=== PATIENT | female | born 1940 | race Caucasian/White ===

== ENCOUNTER 2017-05-16 16:20 | Emergency (ER) | payer MEDICARE, BC ==
--- NOTE | 2017-05-16 16:33 | UC ---
Abdominal Pain Female HPI - HPI Summary HPI Summary: 76 year old female presents with nausea, vertigo and unsteady gait. - History of Current Complaint Stated Complaint: DIZZY NAUSEA SINCE MID DEC VOMITING Time Seen by Provider: 05/16/17 16:26 Allergies/Adverse Reactions: Allergies Allergy/AdvReac Type Severity Reaction Status Date / Time No Known Allergies Allergy Verified 05/16/17 16:44 Home Medications: Home Medications Cholecalciferol TAB* [Vitamin D TAB*] 2,000 units PO DAILY 05/16/17 [History Confirmed 05/16/17] Ferrous Sulfate TAB* 325 mg PO DAILY 05/16/17 [History Confirmed 05/16/17] Hydrochlorothiazide TAB* [Hydrodiuril TAB*] 12.5 mg PO DAILY 05/16/17 [History Confirmed 05/16/17] Lactobacillus [Probiotic] 1 cap PO DAILY 05/16/17 [History Confirmed 05/16/17] Loratadine [Claritin 10 MG CAP] 10 mg PO DAILY 05/16/17 [History Confirmed 05/16] Valsartan TAB* [Diovan TAB*] 80 mg PO DAILY 05/16/17 [History Confirmed 05/16/17 ] Review of Systems Constitutional: Negative, Fatigue Skin: Negative Eyes: Negative ENT: Negative Respiratory: Negative Cardiovascular: Negative Gastrointestinal: Negative Genitourinary: Negative Motor: Negative Neurovascular: Negative Musculoskeletal: Negative Neurological: Negative, Headache, Weakness Psychological: Negative All Other Systems Reviewed And Are Negative: Yes Physical Exam Triage Information Reviewed: Yes Eye Exam: Normal ENT Exam: Normal Dental Exam: Normal Neck exam: Normal Neck: Positive: 1 Respiratory Exam: Normal Cardiovascular Exam: Normal Abdominal Exam: Normal Musculoskeletal Exam: Normal Neurological Exam: Normal Psychological Exam: Normal Skin Exam: Normal Abd Pain Female Course/Dx - Differential Dx/Diagnosis Provider Diagnoses: vertigo. dizziness Discharge - Discharge Plan Condition: Stable Disposition: HOME Prescriptions: Pantoprazole Sodium [Protonix] 20 mg PO BID #60 tab Scopolamine 1.5 mg* PATCH* [Transderm-Scop 1.5 mg Patch*] 1 patch TRANSDERM Q72H #3 patch Patient Education Materials: Acute Nausea and Vomiting (ED) Referrals: Norma Sawant MD [Primary Care Provider] - As Soon As Possible
[2017-05-16 16:49] VITALS: BP 140/77
== END 2017-05-16 17:29 | disposition home or self-care (01) ==
LOC: UCCORT 16:20
DX: R42 Dizziness and giddiness (principal)
CPT/HCPCS: 99212; G0463

== ENCOUNTER 2019-04-20 18:39 | Emergency (ER) | payer MEDICARE, BC ==
--- OUTSIDE RECORDS SUMMARY | 2019-04-20 19:12 | XMS REPORT | Continuity of Care Document ---
:1940 External Reference #:[id number] Author Name Marcelo Schaffer M.D., [facility] Address [address] [place] [address] Care Team Providers Name Role Phone Norma Sawant MD Care Team Information Finish Painter Unavailable Norma Sawant MD Primary Care Physician Unavailable Payers Date Identification Numbers Payment Provider Subscriber Policy Number: [id number] Medicare Shiela Mena PayID: [id number] [address] [place] [address] Effective: 2011 Policy Number: [id number] [facility] Shiela Mena PayID: [id number] [address] [address] [place] [address] Expires: 2019 Policy Number: [id number] Medicare Shiela Mena PayID: [id number] [address] [place] [address] Problems Active Problems Provider Date Localized, primary osteoarthritis of Cordell Newman MD Onset: 09/02/2010 the shoulder region Arthroplasty of knee Onset: 10/22/2003 Contusion of knee Onset: 10/22/2003 Localized, primary osteoarthritis Onset: 10/22/2003 Essential hypertension Marcelo Schaffer M.D., Onset: 06/17/2017 FACC Hyperlipidemia Marcie Perry, MSN, Onset: 09/03/2013 [employer] Benign essential hypertension Marcie Perry, RENUKA, Onset: 09/03/2013 [employer] Dyspnea Marcelo Schaffer M.D., Onset: 08/13/2013 [facility] Family History Date Family Member(s) Observation Comments General Stroke Social History Type Date Description Comments Sex Unknown Lives With Alone Diet Patient follows no dietary restrictions Occupation Retired ADL's/IADL's Independent with all ADL's Tobacco Use Start: Unknown End: Former Cigarette Smoker QUIT 50 YRS AGO Unknown Smoking Status Reviewed: 04/06/19 Former Cigarette Smoker QUIT 50 YRS AGO ETOH Use Drinks Alcoholic Beverages Occasionally Allergies, Adverse Reactions, Alerts Active Allergies Reaction Severity Comments Date Nexium 07/31/2013 Prilosec 07/31/2013 Medications Active Medications SIG Qnty Indications Ordering Date Provider Hydrochlorothiazide 1 tab by mouth 90tabs I10 Marcie Perry 10/11/2018 25mg Tablets every day RENUKA Awad, [employer] Diovan 1 by mouth twice 60tabs I10 Sarbjit, 10/11/2018 80mg Tablets day Marcelo Payne M.D., [facility] Pravastatin Sodium 1 by mouth every 90tabs Sarbjit, 09/15/2018 10mg Tablets day Marcelo Payne M.D., [facility] Colace 1 by mouth daily Unknown 100mg Capsules and can take twice a day as needed Miralax 1 tablespoon Unknown 3350NF Powder with large glass of water every day Proventil HFA 1-2 puffs every Unknown 108(90Base) mcg/Act 4 hours as Aerosol needed Vitamin D3 Super Strength 1 by mouth every Unknown day 2000Unit Capsules Align 1 by mouth every Unknown 4mg Capsules day Lumigan a/d Unknown 0.01% Solution Claritin 1 by mouth every Unknown 10mg Capsules day History Medications Hydrochlorothiazide 1 by mouth 30tabs Tatiana Brand, 07/14/2018 - 25mg Tablets every day as MD Unknown needed for swelling Losartan 1 by mouth 90tabs Sarbjit, 05/18/2018 - Potassium/Hydrochlorothiaz every day Jaylan Cruz M.D., [facility] 50-12.5mg Tablets Diovan 1 by mouth Sarbjit, 02/20/2018 - 320mg Tablets every day Marcelo M., Unknown M.D., [facility] Diovan HCT 1 by mouth 90tabs I10 Sunday [place], 11/02/2017 - 160-25mg Tablets every day 10/11/2018 Diovan 1 by mouth 90tabs I10 [place], 10/07/2017 - 40mg Tablets daily Marcelo M., 10/11/2018 M.D., [facility] Bystolic 1 by mouth 90tabs Davidenko, 10/07/2017 - 5mg Tablets every day Marcelo M., Unknown M.D., [facility] Diovan 1 by mouth 30tabs Davidenko, 07/06/2017 - 40mg Tablets every day Marcelo M., 07/06/2017 M.D., [facility] Diovan 1 by mouth 90tabs Davidenko, 07/06/2017 - 40mg Tablets every day Marcelo M., Unknown M.D., [facility] Amlodipine Besylate 1 by mouth 90tabs Davidenko, 06/21/2017 - 2.5mg Tablets every day Marcelo M., 07/06/2017 M.D., [facility] Amlodipine Besylate 1 by mouth 30tabs [place]ko, 06/17/2017 - 2.5mg Tablets every evening Marcelo M., 06/17/2017 M.D., [facility] Norvasc 1 by mouth 90tabs Davidenko, 06/17/2017 - 2.5mg Tablets every day Marcelo M., 06/21/2017 M.D., [facility] Plavix 1 by mouth 30tabs 786.05 Marcie Perry 09/06/2013 - 75mg Tablets every day Jaylan Awad MSN, [employer] Clopidogrel 1 by mouth 20tabs 786.05 Davidenko, 09/03/2013 - 75mg Tablets every day Marcelo M., 09/06/2013 M.D., [facility] Lidoderm apply to 20units Cordell Newman, 09/10/2009 - 5% Patches affected areas Unknown 12 hours on, 12 hours off Mobic 1 PO bid pc 60tabs Cordell Newman, 01/30/2007 - 7.5mg Tablets Unknown Tylenol Extra Strength 2 tabs by mouth Unknown - 500mg every 4 hours Unknown Tablets as needed for back pain Diovan 1 by mouth 90tabs Tatiana Brand, - 40mg Tablets every day Unknown Bystolic 1 by mouth Unknown - 5mg Tablets every day Unknown Hydrochlorothiazide 1 by mouth Unknown - 25mg Tablets every day 11/02/2017 Iron 1 po qd 90tabs Unknown - 325(65Fe) mg Tablets Unknown Tylenol Extra Strength 2 tab po tid Unknown - 500mg Unknown Tablets Vitamin D-1000 1 po qd 60tabs Unknown - 4000Unit Tablets Unknown Lovaza 2 tab po bid 180caps Unknown - 1gm Capsules Unknown Diovan HCT 1 po qd 30tabs Unknown - 160-25mg Tablets Unknown Zantac 1 po prn Unknown - 150mg Tablets Unknown Aspir-81 1 po qd 30tabs Unknown - 81mg Tablets DR Unknown Vital Signs Date Vital Result Comment 04/06/2019 11:46am BP Systolic Sitting Left Arm 125 mmHg BP Diastolic Sitting Left Arm 68 mmHg Heart Rate 74 /min Respiratory Rate 18 /min Height 63 inches 5'3" Weight 187.00 lb BMI (Body Mass Index) 33.1 kg/m2 BSA (Body Surface Area) 1.88 m2 [place] body weight in kilograms 52 kg O2 % BldC Oximetry 97 % 10/11/2018 9:17am BP Systolic Sitting Right Arm 138 mmHg BP Diastolic Sitting Right Arm 72 mmHg BP Systolic Sitting Left Arm 132 mmHg BP Diastolic Sitting Left Arm 70 mmHg Heart Rate 68 /min Respiratory Rate 18 /min Height 63 inches 5'3" Weight 187.00 lb BMI (Body Mass Index) 33.1 kg/m2 BSA (Body Surface Area) 1.88 m2 [place]ajas body weight in kilograms 52 kg O2 % BldC Oximetry 98 % 09/14/2018 3:07pm BP Systolic Sitting Left Arm 140 mmHg BP Diastolic Sitting Left Arm 76 mmHg Heart Rate 78 /min Respiratory Rate 16 /min Height 63 inches 5'3" Weight 190.00 lb BMI (Body Mass Index) 33.7 kg/m2 BSA (Body Surface Area) 1.89 m2 Lajas body weight in kilograms 52 kg O2 % BldC Oximetry 94 % 03/09/2018 3:48pm BP Systolic Sitting Left Arm 118 mmHg BP Diastolic Sitting Left Arm 66 mmHg Heart Rate 74 /min Respiratory Rate 18 /min Height 63 inches 5'3" Weight 186.00 lb BMI (Body Mass Index) 32.9 kg/m2 BSA (Body Surface Area) 1.87 m2 [place]ajas body weight in kilograms 52 kg 10/14/2017 10:24am BP Systolic Sitting Left Arm 120 mmHg BP Diastolic Sitting Left Arm 60 mmHg Heart Rate 70 /min Respiratory Rate 18 /min Height 63 inches 5'3" Lajas body weight in kilograms 52 kg 10/07/2017 10:29am BP Systolic Sitting Left Arm 144 mmHg BP Diastolic Sitting Left Arm 78 mmHg Heart Rate 76 /min Respiratory Rate 14 /min Height 63 inches 5'3" Weight 184.00 lb BMI (Body Mass Index) 32.6 kg/m2 BSA (Body Surface Area) 1.87 m2 [place]ajas body weight in kilograms 52 kg 09/07/2017 1:57pm BP Systolic Sitting Left Arm 134 mmHg BP Diastolic Sitting Left Arm 82 mmHg Heart Rate 84 /min Respiratory Rate 16 /min Height 63 inches 5'3" Weight 186.00 lb BMI (Body Mass Index) 32.9 kg/m2 BSA (Body Surface Area) 1.87 m2 [place] body weight in kilograms 52 kg 06/17/2017 9:21am BP Systolic Sitting Right Arm 148 mmHg BP Diastolic Sitting Right Arm 84 mmHg Heart Rate 69 /min Respiratory Rate 16 /min Height 63 inches 5'3" Weight 184.00 lb BMI (Body Mass Index) 32.6 kg/m2 BSA (Body Surface Area) 1.87 m2 [place] body weight in kilograms 52 kg 09/03/2013 1:25pm BP Systolic Sitting Right Arm 134 mmHg BP Diastolic Sitting Right Arm 72 mmHg Heart Rate 74 /min Respiratory Rate 16 /min Height 63 inches 5'3" Weight 199.00 lb BMI (Body Mass Index) 35.2 kg/m2 BSA (Body Surface Area) 1.93 m2 08/21/2013 3:00pm BP Systolic Sitting Left Arm 122 mmHg BP Diastolic Sitting Left Arm 66 mmHg Heart Rate 70 /min Respiratory Rate 16 /min Height 63 inches 5'3" Weight 196.00 lb BMI (Body Mass Index) 34.7 kg/m2 BSA (Body Surface Area) 1.92 m2 08/13/2013 2:20pm BP Systolic Sitting Right Arm 132 mmHg BP Diastolic Sitting Right Arm 74 mmHg Heart Rate 72 /min Respiratory Rate 18 /min Height 63 inches 5'3" Weight 199.00 lb BMI (Body Mass Index) 35.2 kg/m2 BSA (Body Surface Area) 1.93 m2 04/11/2012 10:50am Height 62 inches 5'2" pt refused scale 09/01/2011 9:49am Height 62 inches 5'2" Weight 190.00 lb 03/11/2010 10:18am Height 62 inches 5'2" Weight 198.00 lb 03/19/2009 9:42am Height 61 inches 5'1" Weight 182.00 lb 04/10/2008 9:15am Height 61 inches 5'1" Weight 180.00 lb 01/30/2007 3:15pm Height 61 inches 5'1" Weight 200.00 lb 04/18/2006 2:48pm Height 61 inches 5'1" Weight 201.00 lb 07/11/2003 12:57pm Height 62 inches 5'2" Weight 194.00 lb Results Test Date Facility Test Result H/L Range Note Basic Metabolic Panel 09/03/2013 [facility] Glucose 98 mg/dL 76-115 [address] [place], [place] [id number] [phone] BUN 32 mg/dL High 5-23 Creatinine 0.9 mg/dL 0.5-1.4 Glom Filtration Rate, Estimate >60 mL/min >60 If >60 mL/min >60 1 BUN/Creat 35.5 ratio Sodium 139 mmol/L 136-145 Potassium 3.9 mmol/L 3.5-5.1 Chloride 106 mmol/L 98-107 Carbon Dioxide 28 mEq/L 18-29 Anion Gap 9 mEq/L 8-16 Calcium 9.3 mg/dL 8.5-10.1 Laboratory test finding 03/20/2009 N2N/CCD Import Total Protein 7.0 g/dL 6.3-8.0 Albumin 3.8 g/dL 3.5-5.0 Bilirubin,Total 0.6 mg/dL 0.2-1.2 Bilirubin,Direct 0.1 mg/dL 0.1-0.4 Bilirubin,Indirect 0.5 mg/dL 0.0-0.9 Sgot/Ast 21 U/L 16-40 SGPT/Alt 45 U/L 30-65 Alkaline Phosphatase 91 U/L 50-136 Globulin 3.2 gm/dL 1.9-4.3 Alb/Glob 1.2 BUN And Creatinine 03/20/2009 N2N/CCD Import BUN 30 mg/dL High 5-23 BUN/Creat 30.0 mg/dL Creatinine 1.0 0.5-1.4 1 Note: Persistent reduction for 3 months or more in an eGFR <60 mL/min/1.73 m2 defines CKD. Patients with eGFR values >/=60 mL/min/1.73 m2 may also have CKD if evidence of persistent proteinuria is present. The original MDRD equation for estimated GFR is not valid for patients less than 18 years of age. Additional information may be found at www.kdoqi.org. Procedures Date Code Description Status 09/14/2018 50650 EKG-Tracing And Report Completed 10/14/2017 85606 Blood Pressure Monitoring Completed 09/07/2017 69631 EKG-Tracing And Report Completed 06/17/2017 22567 Echocardiogram Complete Completed 06/17/2017 36875 EKG-Tracing And Report Completed 08/28/2013 80718 Stress Test Interpre And Report Only Completed 08/28/2013 19840 Stress Test Physician Super Only Completed 08/28/2013 48016 Stress Test Physician Super Only Completed 08/28/2013 95983 Myocardial Imaging Tomographic Multiple Study AT Rest Or Completed Stress 08/16/2013 65505 Echocardiogram Complete Completed 08/13/2013 82314 EKG-Tracing And Report Completed 04/11/201254983 Asp./Injection major joint Completed 09/01/2011 Asp./Injection major joint Completed 09/02/201012906 Asp./Injection major joint Completed 08/12/2010 53663 Stress Test Interpre And Report Only Completed 08/12/2010 24966 Stress Test Physician Super Only Completed 08/12/2010 65407 Myocardial Imaging Tomographic Multiple Study AT Rest Or Completed Stress 09/10/2009 Asp./Injection major joint Completed 09/18/2008 Asp./Injection major joint Completed 11/10/2005 Asp./Injection major joint Completed 05/17/2005 Asp./Injection major joint Completed Encounters Type Date Location Provider Dx Diagnosis Office Visit 04/06/2019 Cardiology Office Marcelo Schaffer I10 Essential ( primary) 11:40a Cleve Payne, [facility] hypertension E78.5 Hyperlipidemia, unspecified R06.02 Shortness of breath Office Visit 10/11/2018 9:00a Cardiology Office Marcie Perry I1Hang Essential RENUKA Awad, (primary) [employer] hypertension E78.5 Hyperlipidemia, unspecified Office Visit 09/14/2018 3:00p Cardiology Office Marcelo Schaffer Essential Cleve Payne, [facility] (primary) hypertension E78.5 Hyperlipidemia, unspecified Office Visit 03/09/2018 3:40p Cardiology Office Marcelo Schaffer Essential Cleve Payne, [facility] (primary) hypertension Office Visit 10/14/2017 10:00a Cardiology Office Marcelo Schaffer M.D., [facility] (primary) hypertension Office Visit 10/07/2017 10:20a Cardiology Office Marcelo Schaffer M.D., [facility] (primary) hypertension Office Visit 09/07/2017 1:30p Cardiology Office Peter Oreilly I10 Essential [place], [place] (primary) hypertension K59.00 Constipation, unspecified R94.31 Abnormal electrocardiogram [ECG] [EKG] Office Visit 06/17/2017 Cardiology Marcelo Schaffer I1Hang Essential 9:00a Office Cleve Payne, [facility] (primary) hypertension Office Visit 09/03/2013 Cardiology Marcie Perry 786.05 Shortness Of 1:20p Office RENUKA Awad, Breath [employer] 401.1 Hypertension Benign 272.4 Hyperlipidemia Other Unspec 281.9 Anemia Deficiency Unspec Office Visit 08/21/2013 2:20p Cardiology Office Marcie Perry 786.05 Shortness Of Delmi, RENUKA, Breath [employer] 401.1 Hypertension Benign 272.4 Hyperlipidemia Other Unspec Office Visit 08/13/2013 1:30p Cardiology Office Marcelo Schaffer 786.05 Yumiko M.D., [facility] Breath Plan of Treatment Future Appointment(s):08/31/2019 11:40 am - Marcelo Schaffer M.D., [facility] at Cardiology [id number]/06/2019 - Marcelo Schaffer M.D., [id number] Essential ( primary) hypertensionComments:No side effect complaints today. BP well controlled. No [id number] Hyperlipidemia, unspecifiedComments:She refuses rnevwrbR14.02 Shortness of breathComments:I advised more walking. Albuterol is okAllFollow up:Follow up visit in 6 months.
[2019-04-20 19:19] VITALS: BP 152/69
--- NOTE | 2019-04-20 19:26 | UC ---
Skin Complaint HPI - HPI Summary HPI Summary: 78-year-old female who was trying out some new orthotics in her shoes yesterday and went for a long walk and she has increased swelling and redness to her right great toe at the base. She has no history of gout. She does have significant bunions on both feet. - History of Current Complaint Chief Complaint: UCLowerExtremity Time Seen by Provider: 04/20/19 19:26 Stated Complaint: RT BIG TOE COMP Hx Obtained From: Patient Hx Last Menstrual Period: N/A ?: No Onset/Duration: Gradual Onset Skin Exposure Onset/Duration: Worse Since: - The swelling and redness was worse yesterday and last evening however the patient states it's much improved this morning when she applied diclofenac cream to the area but she wanted it rechecked today. Timing: Constant Onset Severity: Moderate Current Severity: Mild Pain Intensity: 6 Location: Other Character: Swelling - Base of the right great toe., Pain, Redness Aggravating Factor(s): Other - Patient thinks this was aggravated by her new orthotics which she states did not fit well into her shoes but she kept walking anyways. Alleviating Factor(s): OTC Creams/Salves Associated Signs & Symptoms: Positive: Negative - Allergy/Home Medications Allergies/Adverse Reactions: Allergies Allergy/AdvReac Type Severity Reaction Status Date / Time No Known Allergies Allergy Verified 04/20/19 19:19 Home Medications: Home Medications Pantoprazole Sodium [Protonix] 20 mg PO BID PRN 04/20/19 [History Confirmed ] PMH/Surg Hx/FS Hx/Imm Hx Previously Healthy: Yes Cardiovascular History: Hypertension Respiratory History: Asthma - Surgical History Surgical History: Yes Surgery Procedure, Year, and Place: hysterectomy. left knee replacement - Family History Known Family History: Positive: Non-Contributory - Social History Occupation: Retired Alcohol Use: Rare Substance Use Type: None Smoking Status (MU): Former Smoker When Did the Patient Quit Smoking/Using Tobacco: in college Review of Systems All Other Systems Reviewed And Are Negative: Yes Skin: Positive: Other - Redness and tenderness base of the right great toe where the bunion is located. Motor: Positive: Negative Neurovascular: Positive: Negative Musculoskeletal: Positive: Negative Neurological: Positive: Negative Is Patient Immunocompromised?: No Physical Exam Triage Information Reviewed: Yes Appearance: Well-Appearing, No Pain Distress, Well-Nourished Vital Signs: Initial Vital Signs Temp 97.7 F 04/20/19 19:13 Pulse 76 04/20/19 19:13 Resp 19 04/20/19 19:13 BP 152/69 04/20/19 19:13 Pulse Ox 98 04/20/19 19:13 Vital Signs Reviewed: Yes Musculoskeletal: Positive: Strength Intact, ROM Intact, Other: - Good peripheral pulses neuro sensation capillary refill. The base of the right great toe is erythematous with mild tenderness on palpation and mild swelling of the dorsum of her right great toe. Neurological Exam: Normal Psychological Exam: Normal Skin Exam: Normal Course/Dx - Course Course Of Treatment: 78-year-old female who I believe has mostly skin irritation from wearing orthotics it did not fit correctly and then going on a long walk yesterday. She states the redness and swelling has much improved today since yesterday. At this point time I don't believe this is a cellulitis that needs an antibiotic nor do I think it's gout. She is to elevate as much as possible. Apply warm moist compresses to the area or do warm soaks she may continue to apply the diclofenec cream since that seemed to improve the redness swelling and pain. She is to follow-up with the rotary planer set up operator on Tuesday if no improvement or if worsening symptoms. - Diagnoses Provider Diagnosis: Skin irritation Discharge - Sign-Out/Discharge Documenting (check all that apply): Patient Departure All imaging exams completed and their final reports reviewed: No Studies - Discharge Plan Condition: Fair Disposition: HOME Patient Education Materials: Cellulitis (DC) Referrals: Norma Sawant MD [Primary Care Provider] - Additional Instructions: Warm moist compresses to the area 4-6 times a day or you can do warm water soaks. Elevate your foot as much as possible, limit walking, follow-up with the foot doctor on Tuesday if no improvement. If you have worsening symptoms with increased redness swelling or red streaks up her leg go to the emergency room. - Billing Disposition and Condition Condition: FAIR Disposition: Home - Attestation Statements Provider Attestation: Per institutional requirements, I have reviewed the chart, however, I was not consulted specifically or made aware of this patient by the midlevel provider. I did not personally evaluate, interact with , or disposition this patient.
== END 2019-04-20 19:40 | disposition home or self-care (01) ==
LOC: UCCORT 18:39
DX: L98.9 Disorder of the skin and subcutaneous tissue, unspecified (principal); I10 Essential (primary) hypertension; Z87.891 Personal history of nicotine dependence
CPT/HCPCS: 99211; G0463

== ENCOUNTER 2019-05-01 09:20 | Emergency (ER) | payer MEDICARE, BC ==
[2019-05-01 10:49] VITALS: BP 124/62
--- NOTE | 2019-05-01 10:51 | UC ---
Lower Extremity/Ankle HPI - HPI Summary HPI Summary: 78 y/o female presents to the urgent care c/o left ankle and foot pain since Tuesday04/27/2019 s/p walking for a couple hrs w/ a new pair of sneaker. At rest pain is 0/10, but when she walks or puts pressure, it is 7/10 localized in her heel radiating to her ankle. She also started that day to do some stretching exercises. She also has Hx of RT knee replacement surgery many years ago w/ Dr Sen and for the past 3 weeks she feels mild pain is the medial aspect of her knee. She wants to make sure nothing is going on w/ her knee. Pt has been taken Tylenol PO to alleviate symptoms. Pt states Hx of osteopenia many years ago, but she hasn't have a DEXA test in many years and it is very reluctant to take any treatment since her mother got cancer. Pt can ambulate w/o limping, but uses a walker since she is prone to fall. Pt denies fever, dizziness, SOB, chest pain, abdominal pain, N/V/D, DARBY, numbness or tingling sensation over her lower extremities - History of Current Complaint Chief Complaint: UCLowerExtremity Stated Complaint: L FOOT/ANKLE PAIN Time Seen by Provider: 05/01/19 10:49 Hx Obtained From: Patient Hx Last Menstrual Period: N/A Onset/Duration: Gradual Onset, Lasting Days - 5 days after wearing a new sneakers, Still Present Severity Initially: Mild Severity Currently: Moderate Pain Intensity: 7 Pain Scale Used: 0-10 Numeric Aggravating Factor(s): Standing, Ambulation Alleviating Factor(s): Rest, OTC Meds - tylenol PO, last doese taken 2hrs ago Able to Bear Weight: Yes - Risk Factors Gout Risk Factors: Age Over 40, Hypertension DVT Risk Factors: Negative Septic Arthritis Risk Factor: Negative - Allergies/Home Medications Allergies/Adverse Reactions: Allergies Allergy/AdvReac Type Severity Reaction Status Date / Time Sulfa (Sulfonamide Allergy Unknown Verified 05/01/19 10:50 Antibiotics) Reaction Details PMH/Surg Hx/FS Hx/Imm Hx Previously Healthy: Yes Endocrine History: Dyslipidemia Other Endocrine History: glaucoma, osteopenia Cardiovascular History: Hypertension GI/ History: Gastroesophageal Reflux - Surgical History Surgical History: Yes Surgery Procedure, Year, and Place: hysterectomy. left knee replacement - Family History Known Family History: Positive: Cardiac Disease, Diabetes, Non-Contributory - Social History Occupation: Retired Lives: With Family Alcohol Use: Rare Substance Use Type: None Smoking Status (MU): Former Smoker When Did the Patient Quit Smoking/Using Tobacco: in college Review of Systems All Other Systems Reviewed And Are Negative: Yes Constitutional: Positive: Negative Skin: Positive: Negative Eyes: Positive: Negative ENT: Positive: Negative Respiratory: Positive: Negative Cardiovascular: Positive: Negative Gastrointestinal: Positive: Negative Genitourinary: Positive: Negative Motor: Positive: Negative Neurovascular: Positive: Negative Musculoskeletal: Positive: Decreased ROM - RT ankle, Other: - RT ankle and foot pain s/p walking w/ new Physical Exam - Summary Physical Exam Summary: Vital Signs Reviewed: Yes General: well developed, well nourished old female, sitting in the examining table w/o any apparent distress Eyes: Positive: Conjunctiva Clear - PERRLA, EOMI, ENT: Positive: Normal ENT inspection, Hearing grossly normal, Pharynx normal, TMs normal Neck: Positive: Supple, Nontender, No Lymphadenopathy Respiratory: Positive: Chest non-tender, Lungs clear, Normal breath sounds, No respiratory distress Cardiovascular: Positive: RRR, No Murmur, Pulses Normal, Brisk Capillary Refill Abdomen Description: Positive: Nontender, No Organomegaly, Soft. Negative: CVA Tenderness (R), CVA Tenderness (L) Bowel Sounds: Positive: Present Musculoskeletal: LF Ankle: Pt is able to bear weight and ambulate w/ mild limping. Pt uses a walker. The L ankle is without obvious asymmetry or deformity when compared to the RT ankle. FROM w/o eliciting pain. No swelling at the lateral or medial malleolus,. No ecchymosis or bruising observed. Point tenderness on the Left heel Talar tilt test is negative for ligament laxity to valgus or varus stress. Negative anterior drawer. Peroneal nerve is intact with strong eversion and plantar flexion. Positive sensation over the Rt foot and Rt ankle, positive pulses, capillary refill intact Left Knee: No surface trauma, soft tissue swelling, or obvious effusion. No overlying erythema or warmth. The L knee is without obvious asymmetry or deformity when compared with the R knee. FROM of LF knee. No tenderness to palpation of the patella, no effusion or ballottement. No tenderness over the infrapatellar tendon. Point tenderness over the medial joint line, No tenderness over the medial or lateral tibial plateaus. No tenderness over the proximal fibular head, No tenderness, fullness or mass of the popliteal fossa. No quadriceps tenderness. No laxity of the ACL. PCL, MCL, or LCL. no collateral ligament laxity to valgus or varus stress. Negative Annika/Drawer sign. Negative Dominik. Distal motor and neurovascular status intact. Neurological Exam: Normal Psychological Exam: Normal Skin: warm and dry Triage Information Reviewed: Yes Vital Signs: Initial Vital Signs Temp 97.6 F 05/01/19 10:43 Pulse 72 05/01/19 10:43 Resp 16 05/01/19 10:43 BP 124/62 05/01/19 10:43 Pulse Ox 99 05/01/19 10:43 Lower Extremity Course/Dx - Course Course Of Treatment: 78 y/o female presents to the urgent care c/o left ankle and foot pain since Tuesday04/27/2019 s/p walking for a couple hrs w/ a new pair of sneaker. At rest pain is 0/10, but when she walks or puts pressure, it is 7/10 localized in her heel radiating to her ankle. She also started that day to do some stretching exercises. She also has Hx of RT knee replacement surgery many years ago w/ Dr Sen and for the past 3 weeks she feels mild pain is the medial aspect of her knee. She wants to make sure nothing is going on w/ her knee. Pt has been taken Tylenol PO to alleviate symptoms. Pt states Hx of osteopenia many years ago, but she hasn't have a DEXA test in many years and it is very reluctant to take any treatment since her mother got cancer. Pt can ambulate w/o limping, but uses a walker since she is prone to fall. Pt denies fever, dizziness, SOB, chest pain, abdominal pain, N/V/D, DARBY, numbness or tingling sensation over her lower extremities. Hx obtained. Pt is hemodynamically stable, A&OX3, Vitals: WNL. Left knee X-ray, IMPRESSION: 1. OSTEOPENIA. 2. STATUS POST LEFT KNEE ARTHROPLASTY. 3. NO ACUTE OSSEOUS INJURY. THE DEGREE OF OSTEOPENIA MAY MAKE A NONDISPLACED FRACTURE RADIOGRAPHICALLY OCCULT. IF SYMPTOMS PERSIST, RECOMMEND REPEAT IMAGING. left ankle and foot X-ray:REPORT AND IMPRESSION: Bone density appears decreased throughout. Consider DEXA scan for further assessment. Negative for fracture or osteochondral lesion at the ankle or foot. 50 degrees hallux valgus deformity at the first metatarsal phalangeal joint and associated moderate osteoarthritis. In addition to diffuse soft tissue swelling there is more prominent soft tissue swelling both over the lateral malleolus and superficial to the first metatarsal phalangeal joint. Pt symptoms may be possible plantar fasciitis vs. ankle sprain aggravated by osteoarthritis. Pt explained results and strongly advised to f/u w/ Orthopedic DR Dawn in [facility] for further management in her symptoms. Pt's ankle immobilized w / JOSEPHINE bandage and gel splint by the Nurse and given also a post-op shoe to avoid too much flexion of her foot. Advised to take Tylenol PO and f/u also w/ her PCP for a DEXA test. D/C instructions explained. Pt understood and agreed w / plan of care. pt left clinic hemodynamically stable, A&OX3. - Differential Dx/Diagnosis Differential Diagnosis/HQI/PQRI: Arthritis, Contusion, Fracture (Closed), Gout, Sprain, Strain, Tendonitis, Other - plntar fasciitis Provider Diagnosis: Left knee pain, Left ankle pain, Heel spur, Osteopenia Discharge - Sign-Out/Discharge Documenting (check all that apply): Patient Departure - d/C home All imaging exams completed and their final reports reviewed: Yes - Discharge Plan Condition: Stable Disposition: HOME Patient Education Materials: Ankle Sprain (ED), Heel Spur (ED) Referrals: Norma Sawant MD [Primary Care Provider] - 3 Days Nereyda LARA,Zaki Carson [Medical Doctor] - 3 Days Additional Instructions: 1-Please continue taken Tylenol PO as directed to alleviate pain and swelling. 2-Please apply ice, keep your ankle immobilized with the splint. Avoid standing for long periods of time or strenuous exercise. Use your walker to maintain stability. 3- Please f/u with your Orthopedic Dr Dawn at [facility] for further management in your ankle sprain and knee pain. 4- Please f/u w/ your PCP for a Dexa test and further management in your Osteopenia, you may be developing osteoporosis. - Billing Disposition and Condition Condition: STABLE Disposition: Home
== END 2019-05-01 13:00 | disposition home or self-care (01) ==
LOC: UCCORT 09:20
DX: M25.562 Pain in left knee (principal); M25.572 Pain in left ankle and joints of left foot; Y93.01 Activity, walking, marching and hiking; Y92.9 Unspecified place or not applicable; Z96.651 Presence of right artificial knee joint; M77.30 Calcaneal spur, unspecified foot; M85.862 Other specified disorders of bone density and structure, left lower leg; I10 Essential (primary) hypertension; Z87.891 Personal history of nicotine dependence
CPT/HCPCS: 99213; G0463

== ENCOUNTER 2019-07-20 14:52 | Emergency (ER) | payer MEDICARE, BC ==
--- OUTSIDE RECORDS SUMMARY | 2019-07-20 15:07 | XMS REPORT | Continuity of Care Document ---
:1940 External Reference #:[id number] Author Name Shai Powers M.D. (transmitted by agent of provider Margarito Bailey) Address [address] [place] [id number] Care Team Providers Name Role Phone Norma Sawant MD - Internal Medicine Care Team Information Tattoo Technician [phone] Problems Description No Information Available Social History Type Date Description Comments Sex Unknown Tobacco Use Start: Unknown Never Smoked Cigarettes Tobacco Use Start: Unknown Patient smoking status is unknown Tobacco Use Start: Unknown Patient smoking status is unknown Smoking Status Reviewed: 06/11/19 Patient smoking status is unknown Smokeless Tobacco Never Used Smokeless Tobacco ETOH Use Rarely consumes alcohol Tobacco Use Start: Unknown Patient has never smoked Allergies, Adverse Reactions, Alerts Active Allergies Reaction Severity Comments Date Sulfa 06/11/2019 Inactive Allergies NKDA 08/29/2018 Medications Active Medications SIG Qnty Indications Ordering Date Provider Deon 1 by mouth Unknown 80mg Tablets twice daily Claritin 1 by mouth Unknown 10mg Capsules every day Hydrochlorothiazide 1 tab by Marcie Perry 25mg Tablets mouth daily Vitamin D2 1 tab by Unknown 2000Unit Tablets mouth daily Protonix 1 by mouth as Unknown 20mg Tablets DR needed Miralax 17 grams by Unknown Powder mouth every day Immunizations Description No Information Available Vital Signs Date Vital Result Comment 06/11/2019 3:37pm Height 63 inches 5'3" Heart Rate 77 /min BP Systolic Sitting 106 mmHg BP Diastolic Sitting 66 mmHg Respiratory Rate 16 /min Pain Level 0 O2 % BldC Oximetry 94 % 10/10/2018 2:54pm Height 63 inches 5'3" Weight 190.00 lb BP Systolic 134 mmHg BP Diastolic 80 mmHg BMI (Body Mass Index) 33.7 kg/m2 Results Description No Information Available Procedures Description No Information Available Medical Devices Description No Information Available Encounters Description No Information Available Assessments Description No Information Available Plan of Treatment No Information Available Functional Status Description No Information Available Mental Status Description No Information Available Referrals Description No Information Available
[2019-07-20 15:15] VITALS: BP 115/62
--- NOTE | 2019-07-20 16:15 | UC ---
Throat Pain/Nasal Ronny HPI - HPI Summary HPI Summary: 78-year-old woman comes in with a chief complaint of sore throat and jaw pain for about 3 days. It hurts when she swallows. She been having some pain into bilateral posterior jaw that she relates is due to the sore throat. No fevers or chills. Minimal rhinorrhea some chest congestion. Patient reports that in April of this year she had dental work the left posterior lower molar and has had some dental discomfort ever since that although it's been gradually improving since that time. She is wondering if this is a dental infection or not. The pain in both sides of the jaw has come on simultaneously with the sore throat. Denies any chest pain. Patient reports chronic shortness of breath no complaint of any worsening of shortness of breath. - History of Current Complaint Chief Complaint: UCGeneralIllness Stated Complaint: SORE THROAT Time Seen by Provider: 07/20/19 15:43 Hx Last Menstrual Period: N/A Pain Intensity: 3 - Allergies/Home Medications Allergies/Adverse Reactions: Allergies Allergy/AdvReac Type Severity Reaction Status Date / Time Sulfa (Sulfonamide Allergy Unknown Verified 07/20/19 15:16 Antibiotics) Reaction Details PMH/Surg Hx/FS Hx/Imm Hx Previously Healthy: Yes Cardiovascular History: Hypertension GI/ History: Gastroesophageal Reflux - Surgical History Surgical History: Yes Surgery Procedure, Year, and Place: hysterectomy. left knee replacement - Family History Known Family History: Positive: Cardiac Disease, Diabetes, Non-Contributory - Social History Alcohol Use: Rare Substance Use Type: None Smoking Status (MU): Former Smoker When Did the Patient Quit Smoking/Using Tobacco: in college Review of Systems All Other Systems Reviewed And Are Negative: Yes Constitutional: Positive: Negative Skin: Positive: Negative Eyes: Positive: Negative ENT: Positive: Dental Pain, Sore Throat Respiratory: Positive: Negative Cardiovascular: Positive: Negative Gastrointestinal: Positive: Negative Motor: Positive: Negative Neurovascular: Positive: Negative Musculoskeletal: Positive: Negative Neurological: Positive: Negative Psychological: Positive: Negative Is Patient Immunocompromised?: No Physical Exam Triage Information Reviewed: Yes Appearance: Well-Appearing, No Pain Distress, Well-Nourished Vital Signs: Initial Vital Signs Temp 99.3 F 07/20/19 15:08 Pulse 88 07/20/19 15:08 Resp 18 07/20/19 15:08 BP 115/62 07/20/19 15:08 Pulse Ox 96 07/20/19 15:08 Vital Signs Reviewed: Yes Eye Exam: Normal Eyes: Positive: Conjunctiva Clear ENT: Positive: Pharyngeal erythema, TMs normal Dental: Positive: Bleeding - The lower molars on both sides have extensive dental work no obvious cavity or swollen gingiva noted. Neck: Positive: Supple Respiratory: Positive: Lungs clear, Normal breath sounds, No respiratory distress Cardiovascular: Positive: RRR Musculoskeletal: Positive: Strength Intact, ROM Intact Neurological: Positive: Alert, Muscle Tone Normal Psychological: Positive: Age Appropriate Behavior Skin Exam: Normal Diagnostics - EKG Cardiac Rate: NL - AT 1559 Cardiac Rhythm: Sinus: Normal - 82BPM Ectopy: None - BORDERLINE PROLONGED WI INTERVAL. PROBABLE LVH WITH SECONDARY REPOL ST Segment: Other EKG Comparison: Other - NO ST ELEVATION Throat Pain/Nasal Course/Dx - Course Course Of Treatment: I discussed EKG results with the patient. I do not see any ischemic changes a do not have an old EKG to compare to. Patient reports she is chronically short of breath she's not worse shortness of breath. No chest pain. Overall we discussed viral versus bacterial infections and at this time the patient prefers to have antibiotic prescription to be used if not improved. We also discussed that if she had any chest pain or increasing shortness of breath or felt ill she needs to get reevaluated again right away. - Differential Dx/Diagnosis Provider Diagnosis: Jaw pain, Sore throat Discharge ED - Sign-Out/Discharge Documenting (check all that apply): Patient Departure All imaging exams completed and their final reports reviewed: No Studies - Discharge Plan Condition: Stable Disposition: HOME Prescriptions: Amoxicillin PO (*) [Amoxicillin 500 MG CAP*] 500 mg PO TID #30 cap Patient Education Materials: Pharyngitis (ED) Referrals: Norma Sawant MD [Primary Care Provider] - Additional Instructions: FOLLOW UP WITH YOUR DOCTOR AND DENTIST IF YOUR SORE THROAT AND JAW PAIN ARE NOT COMPLETELY IMPROVED. GET RECHECKED SOONER IF YOUR CONDITION WORSENS; CHEST PAIN, SHORTNESS OF BREATH , FEVER, YOU FEEL ILL OR ANY QUESTIONS OR CONCERNS. - Billing Disposition and Condition Condition: STABLE Disposition: Home
== END 2019-07-20 16:28 | disposition home or self-care (01) ==
LOC: UCCORT 14:52
DX: R68.84 Jaw pain (principal); J02.9 Acute pharyngitis, unspecified; Z88.1 Allergy status to other antibiotic agents; I10 Essential (primary) hypertension; Z87.891 Personal history of nicotine dependence
CPT/HCPCS: 87651; 93005; 99212; G0463

== ENCOUNTER 2019-07-25 13:14 | Emergency (ER) | payer MEDICARE, BC ==
[2019-07-25 15:24] VITALS: BP 115/66
--- NOTE | 2019-07-25 16:37 | ED ---
Respiratory - HPI Summary HPI Summary: 78 yr old with a week of URI and cough symptoms. Seen last week. Neg rapid strep. She has had some pressure in ears, some nasal congestion. Sore throat is better. Cough is minimally productive. She overall is feeling better. She was prescribed Amoxicillin last week and did not pick it up. She wanted to be seen again to see if she really needs the Amox. She has no CP. - History of Current Complaint Chief Complaint: UCGeneralIllness Stated Complaint: COUGH Time Seen by Provider: 07/25/19 15:58 Pain Intensity: 5 - Allergy/Home Medications Allergies/Adverse Reactions: Allergies Allergy/AdvReac Type Severity Reaction Status Date / Time Sulfa (Sulfonamide Allergy Unknown Verified 07/25/19 15:24 Antibiotics) Reaction Details PMH/Surg Hx/FS Hx/Imm Hx Endocrine/Hematology History: Denies: Hx Diabetes, Hx Thyroid Disease Cardiovascular History: Reports: Hx Hypertension Respiratory History: Reports: Hx Asthma Denies: Hx Chronic Obstructive Pulmonary Disease (COPD) GI History: Denies: Hx Ulcer - Surgical History Surgery Procedure, Year, and Place: hysterectomy. left knee replacement Infectious Disease History: Yes Infectious Disease History: Reports: Hx Shingles - mild, years ago Denies: Hx Hepatitis, Hx Human Immunodeficiency Virus (HIV), Traveled Outside the [place] in Last 30 Days - Family History Known Family History: Positive: Cardiac Disease, Diabetes, Non-Contributory - Social History Occupation: Retired Alcohol Use: Rare Substance Use Type: Reports: None Smoking Status (MU): Former Smoker Review of Systems Constitutional: Negative Positive: Sore Throat, Ear Ache Positive: Cough All Other Systems Reviewed And Are Negative: Yes Physical Exam Triage Information Reviewed: Yes Vital Signs On Initial Exam: Initial Vitals Temp Pulse Resp BP Pulse Ox 98.1 F 82 18 115/66 97 07/25/19 15:18 07/25/19 15:18 07/25/19 15:18 07/25/19 15:18 07/25/19 15:18 Vital Signs Reviewed: Yes Appearance: Positive: Well-Appearing, No Pain Distress Skin: Positive: Warm, Skin Color Reflects Adequate Perfusion Head/Face: Positive: Normal Head/Face Inspection Eyes: Positive: EOMI ENT: Positive: TMs normal. Negative: Pharyngeal erythema, TM bulging, TM dull, TM red, Muffled voice, Hoarse voice Neck: Positive: Nontender Respiratory/Lung Sounds: Positive: Clear to Auscultation, Breath Sounds Present Cardiovascular: Positive: RRR. Negative: Murmur Abdomen Description: Positive: Nontender Musculoskeletal: Positive: Strength/ROM Intact Neurological: Positive: Sensory/Motor Intact, Alert, Oriented to Person Place, Time, CN Intact II-III, Normal Gait, Speech Normal Psychiatric: Positive: Normal Diagnostics - Vital Signs Vital Signs Temp Pulse Resp BP Pulse Ox 07/25/19 15:18 98.1 F 82 18 115/66 97 - Laboratory Lab Statement: Any lab studies that have been ordered have been reviewed, and results considered in the medical decision making process. - Radiology chest xray Radiology Interpretation Completed By: Radiologist - NAD; hiatal hernia Disposition - Course Course Of Treatment: 78 yr old with URI symptoms that she states have gotten better. Xray neg. She will call Dr Sawant for followup. - Diagnoses Provider Diagnoses: Upper respiratory infection Discharge ED - Sign-Out/Discharge Documenting (check all that apply): Patient Departure All imaging exams completed and their final reports reviewed: Yes - Discharge Plan Condition: Good Disposition: HOME Patient Education Materials: Upper Respiratory Infection (ED) Referrals: Norma Sawant MD [Primary Care Provider] - - Billing Disposition and Condition Condition: GOOD Disposition: Home
== END 2019-07-25 16:56 | disposition home or self-care (01) ==
LOC: UCCORT 13:14
DX: J06.9 Acute upper respiratory infection, unspecified (principal); Z88.2 Allergy status to sulfonamides; I10 Essential (primary) hypertension
CPT/HCPCS: 71046; 99211; G0463